=== PATIENT | male | born 1955 | race Caucasian/White ===

== ENCOUNTER 2017-12-03 19:29 | Emergency (ER) | payer OTHER ==
[~2017-12-03] VITALS: Ht 170.2 cm; Wt 77.1 kg
[2017-12-03] MEDS ORDERED: CLONIDINE HCL 0.1 MG TABLET PO ONE (19:45)
[2017-12-03] MEDS ORDERED: CLONIDINE HCL 0.1 MG TABLET ONE (19:49)
[2017-12-03] MEDS ORDERED: LOSARTAN POTASSIUM 50 MG TAB (19:52)
[2017-12-03] MEDS ORDERED: QUETIAPINE 100 MG (19:52)
[2017-12-03] MEDS ORDERED: DOXEPIN HCL 50 MG (19:52)
[2017-12-03] MEDS ORDERED: FAMOTIDINE 40 MG (19:52)
[2017-12-03] MEDS ORDERED: EPINEPHRINE 0.3 MG (19:52)
[2017-12-03] MEDS ORDERED: HYDROXYZINE HCL 50 MG (19:52)
[2017-12-03] MEDS ORDERED: CLONIDINE TAB 0.1MG (19:52)
[2017-12-03] MEDS ORDERED: GABAPENTIN 300 MG CAPSULE (19:52)
[2017-12-03] MEDS ORDERED: DIAZEPAM 2 MG TABLET PO ONE (20:00)
[2017-12-03 20:01] LABS: *BILIRUBIN,URIN NEGATIVE (NEGATIVE); *BLOOD, URINE NEGATIVE (NEGATIVE); *CLARITY,URINE CLEAR (CLEAR); *COLOR,URINE YELLOW (YELLOW); *KETONES,URINE NEGATIVE (NEGATIVE); *PROTEIN,URINE NEGATIVE (NEGATIVE); *UROBILINOGEN,URINE 0.2 E.U./dl (NORMAL); LEUKOCYTE ESTERASE ,URINE NEGATIVE (NEGATIVE); NITRITE, URINE NEGATIVE (NEGATIVE); UGLUCOSE TRACE (NEGATIVE)
[2017-12-03] MEDS ORDERED: DIAZEPAM 5 MG TABLET ONE (20:08)
[2017-12-03 20:09] LABS: MUCUS,URINE FEW /LPF (0-FEW); RBC,URINE 0-3 /HPF (0-3); WBC,URINE NONE SEEN /HPF (0-3)
--- NOTE | 2017-12-03 20:17 | NUR ---
PT IN BED. PT'S CAREGIVER AT BEDSIDE. PT'S BP HAS DECLINED SINCE INITIAL CHECK. MD MADE AWARE. PT IS CALM AND COOPERATIVE. PT IS WATCHING TV.
[2017-12-03] MEDS ORDERED: LORAZEPAM 0.5 MG TABLET PO ONE (22:00)
[2017-12-03] MEDS ORDERED: LORAZEPAM 0.5 MG TABLET ONE (22:10)
--- NOTE | 2017-12-03 22:20 | NUR ---
Patient discharged to home in stable conditon. Written and verbal after care instructions given. Patient verbalizes understanding of instructions. Patient experienced reduced bp and anxiety prior to discharge. Patient able to ambulate unassisted with steady gait. Patient left with all personal belongings.
[2017-12-03 22:21] VITALS: BP 130/86
== END 2017-12-03 22:20 | disposition home or self-care (01) ==
LOC: ER 19:32
DX: G47.00 Insomnia, unspecified (principal); F41.9 Anxiety disorder, unspecified; I10 Essential (primary) hypertension; F11.10 Opioid abuse, uncomplicated; Z88.0 Allergy status to penicillin; Z88.8 Allergy status to other drugs, medicaments and biological substances; Z79.899 Other long term (current) drug therapy
CPT/HCPCS: 93005; A4663